=== PATIENT | female | born 1960 ===

== ENCOUNTER → 2017-10-13 | Day surgery (SDC) | payer OTHER ==
[~2017-10-13] VITALS: Ht 170.2 cm; Wt 103.4 kg
--- NOTE | 2017-10-13 10:36 | Operative Report ---
Operative/Inv Procedure Report Surgery Date: 10/13/17 Name of Procedure: hysteroscopy,D+C Pre-Operative Diagnosis: abnormla uterine bleeding Post-Operative Diagnosis: same Estimated Blood Loss: 50ml to 100ml Surgeon/Bridge Tender: Lang Hunt MD Anesthesia: moderate sedation IV Fluids: LR Urine Output: Staight cath 100ml clear urine at bengining of procedure Specimens: EMB Complications: none Condition: stable Operative Indication: 57yo, multiple uterine fibroids, abnormal uterine bleeding Operative/Procedure Note Note: Patient was taken to the operating room where IV sedation was obtained without difficulty. She was then put into the dorsolithotomy position, and examined under anesthesia, she was found to have a anteverted uterus with normal adnexa. She was then prepared and draped in the usual sterile fashion. A bivalve speculum was inserted into the patient's vagina, a single-tooth tenaculum was placed at the anterior lip of the cervix. The uterine cavity was sounded to be 11 cm. The cervix was dilated to accommodate the diagnostic hysteroscope. Hysteroscope was inserted into the uterine cavity, findings noted in findings section. Hyesteroscope was withdrawn from the cavity. A sharp curretage was performed. Samples were sent to pathology. Tenaculum was removed from the anterior lip of the cervix, good hemostasis noted. Patient tolerated the procedure well, all instruments and laps counts were correct. Patient transferred to recovery room in stable condition. Findings: anterverted uterus, sound 11 cm, normal looking endometrium
== END ==
LOC: STS 02:02
DX: N93.9 Abnormal uterine and vaginal bleeding, unspecified (principal); E11.9 Type 2 diabetes mellitus without complications; Z79.84 Long term (current) use of oral hypoglycemic drugs; I10 Essential (primary) hypertension
CPT/HCPCS: 36415; 81025; 88305; J2210; J2250